=== PATIENT | female | born 1980 | race Asian ===

== ENCOUNTER 2024-10-04 16:08 | Emergency (ER) | payer OTHER, SELFPAY ==
--- NOTE | ~2024-10-04 | XR_ITS ---
EXAMINATION: LEFT ANKLE AND LEFT FOOT CLINICAL INFORMATION: Injury COMPARISON: None available. TECHNIQUE: 3 views left ankle, 3 views left foot FINDINGS: There is a tiny avulsion fracture arising from the distal calcaneus laterally with associated soft tissue swelling (see saved rod images). No other bone, joint or soft tissue abnormalities seen. XR/XR ankle LT min 3V IMPRESSION: Avulsion fracture distal lateral calcaneus. Electronically signed by: Donaldo Henson MD 10/04/2024 05:31 PM [facility]
--- NOTE | ~2024-10-04 | XR_ITS ---
EXAMINATION: LEFT ANKLE AND LEFT FOOT CLINICAL INFORMATION: Injury COMPARISON: None available. TECHNIQUE: 3 views left ankle, 3 views left foot FINDINGS: There is a tiny avulsion fracture arising from the distal calcaneus laterally with associated soft tissue swelling (see saved rod images). No other bone, joint or soft tissue abnormalities seen. XR/XR foot LT min 3V IMPRESSION: Avulsion fracture distal lateral calcaneus. Electronically signed by: Donaldo Henson MD 10/04/2024 05:31 PM [facility]
[2024-10-04 16:16] VITALS: BP 150/71; PULSE 86; RESP 20; TEMP 36.7; O2SAT 98
--- NOTE | 2024-10-04 16:17 | ED_ITS ---
HPI - General Adult General Chief complaint: Extremity Problem Stated complaint: L foot injury s/p fall Time Seen by Provider: 10/04/24 17:37 Source: patient Mode of arrival: wheelchair Limitations: no limitations History of Present Illness ED Provider: Mary Khalil PA-C HPI narrative: Patient is a 44 year old assigned female at with no reported medical history presenting to the emergency department today with left foot / ankle pain. Patient states that she tripped and fell down 2 stairs, rolling her left ankle / foot, and has had pain ever since. Patient denies any head strike or loss of consciousness. Patient denies any dizziness, lightheadedness, abdominal pain, nausea, vomiting, fever, chills, blurry vision, double vision, loss of vision, chest pain, difficulty breathing, shortness of breath, back pain, night sweats, pain with urination, increased urinary frequency, increased urinary urgency, blood in her urine or stool, syncope or a near syncopal episode, bowel incontinence, bladder incontinence, or any other complaints at this time. Location: left and lower extremity Relieving factors: immobilization Exacerbating factors: movement Associated symptoms: denies other symptoms Treatments prior to arrival: none Related Data Allergies Allergy/AdvReac Type Severity Reaction Status Date / Time No Known Allergies Allergy Verified 10/04/24 16:18 Review of Systems Constitutional: Constitutional: Reports no additional constitutional complaints, Denies chills, Denies fever(s) and Denies night sweats Eyes: Eyes: Reports no additional eye complaints, Denies blurry vision, Denies change in vision, Denies diplopia, Denies eye discharge, Denies loss of vision and Denies eye pain ENT: Denies dizziness Cardiovascular: Cardiovascular: Reports no additional cardiovascular complaints, Denies chest pain, Denies lightheadedness, Denies Loss of Consciousness and Denies dyspnea Respiratory: Respiratory: Reports no additional respiratory complaints and Denies dyspnea Gastrointestinal: Gastrointestinal: Reports no additional gastrointestinal complaints, Denies abdominal pain, Denies melena, Denies hematochezia, Denies change in bowel habits and Denies change in stool character Genitourinary: Genitourinary: Denies hematuria, Denies urinary frequency, Denies dysuria, Denies urinary incontinence, Denies urinary hesitancy and Denies urinary urgency Musculoskeletal: Musculoskeletal: Reports no additional musculoskeletal complaints, Denies numbness and Denies tingling Comments: left ankle and foot pain Neurologic: Denies dizziness, Denies loss of vision, Denies numbness and Denies tingling Psychiatric: Psychiatric: Reports no additional psychiatric complaints Endocrine: Endocrine: Reports no additional endocrine complaints Hematologic/Lymphatic: Hematologic/Lymphatic: Reports no additional hematologic/lymphatic complaints Allergic/Immunologic: Allergic/Immunologic: Reports no additional allergic/immunologic complaints PMFSH Past Medical History Attestation statement: The following information was validated with the patient. Source: old records reviewed and nursing notes reviewed Social History Social History Advance Directives: No Advance Directives Information Provided: Yes Physical Exam ED Vital Signs: Vital Signs - 24 hr 10/04/24 16:16 10/04/24 18:57 Temperature 98.1 F 98.1 F Pulse Rate 86 86 Respiratory Rate 20 20 Blood Pressure 150/71 H 150/71 H Pulse Oximetry 98 98 Oxygen Delivery Method Room Air Room Air BMI result Body Mass Index 30.0 Const General: cooperative, no acute distress, alert and awake Nutritional Appearance: well nourished Orientation/consciousness: patient oriented x3 Limitations: no limitations HENMT Head: Yes normal to inspection and Yes atraumatic Ears: hearing grossly normal bilaterally and external ears normal General nose exam: Normal external nose present, no nasal discharge noted and no epistaxis Face and sinus: Yes normal facial exam, No abrasion and No laceration Mouth: Normal oral and palatal mucosa present, no drooling and no muffled voice Eyes General: appearance normal, both eyes and all related structures Periorbital: periorbital findings normal Eyelids: Yes eyelids normal Conjunctivae: conjunctivae normal Pupils: Equal, round and reactive pupils present EOM: EOMs intact bilaterally Neck Neck: Yes normal visual inspection, Yes full ROM and Yes no lymphadenopathy Chest Chest palpation & inspection: normal inspection of the chest Resp Effort & Inspection: normal respiratory effort and able to speak in complete sentences GI Inspection: Yes normal to inspection Neuro General: patient oriented x3 and moves all extremities Cranial nerves: Yes Equal, round and reactive pupils present Cognition (Neuro): normal cognition Extrem Other: minimal swelling present to the medial and lateral left ankle as well as the plantar aspect of the left foot pain with palpation of the plantar left foot General: Yes full ROM and Yes capillary refill normal Psych Appearance: grossly normal Mental Status: mental status grossly normal Affect: normal affect Attitude: cooperative Thought process: Normal thought process present Thought content: Normal thought content present Insight: Good insight present (Psych) Course Course Course Narrative: RME performed by Mary Khalil PA-C. Patient is a 44 year old assigned female at presenting to the emergency department with left foot and ankle pain. Patient states she rolled her ankle going down 2 steps and has been having pain ever since. Patient denies any head strike or loss of consciousness. Detailed physical exam and review of systems are deferred to the case assistant. Imaging ordered. Patient placed back in the waiting room pending room availability and results. Procedures Orthopedic Splinting/Casting Injury #1: Side: left Lower Extremity Injury Location: ankle and foot Lower Extremity Immobilizer: boot orthosis Other Orthopedic Equipment: crutches Medical Decision Making Medical Decision Making MDM Narrative: Patient is a 44 year old assigned female at with no reported medical history presenting to the emergency department today with left ankle and foot pain. Patient's physical exam was as noted in the physical exam portion of this note. Patient's left foot and ankle x-ray showed a small distal calcaneous avulsion fracture. I confirmed with the orthopedic team that the patient could be placed in a walking boot, given non weight bearing instructions, as well as crutches + crutch instructions and follow up on an outpatient basis in the office. The orthopedic team confirmed this was appropriate. I explained my physical exam findings as well as all test results to the patient. I answered all questions asked by the patient. Patient's left lower extremity was placed in a walking boot, without incident. Patient's PMS was intact prior to and after boot placement. I stressed the importance of the patient taking her medication as directed (either prescribed or as the over the counter packaging recommends). I stressed the importance of the patient following up with her primary care provider and an orthopedic provider. I stressed the importance of the patient returning to the emergency department immediately if her symptoms were to worsen or if she were to develop any dizziness, shortness of breath, difficulty breathing, chest pain, blurry vision, loss of vision, nausea, vomiting, abdominal pain, fever, chills, back pain, or any other complaints. Patient verbalized agreement and understanding with this treatment plan and discharge. Differential Diagnosis Differential Diagnoses: The differential diagnosis associated with the presentation includes Calcaneous fracture Foot fracture Ankle fracture Ankle sprain / strain Foot sprain / strain Admission/Observation Consideration of admission/observation: Escalation of care including admission/observation considered Patient would have been admitted to the hospital had her work up had any f indings where hospital admission was appropriate and her clinical presentation warranted hospital admission. Consult Healthcare Provider Management of the patient was discussed with: Formula Maker (spoke to the orthopedic team as noted in the MDM Rationale portion of this note.) Independent Interpretation I performed an independent interpretation of an: Plain X-Ray Interpretation: My interpretation is in agreement with the radiologist's impression of these imaging studies. EXAMINATION: LEFT ANKLE AND LEFT FOOT CLINICAL INFORMATION: Injury COMPARISON: None available. TECHNIQUE: 3 views left ankle, 3 views left foot FINDINGS: There is a tiny avulsion fracture arising from the distal calcaneus laterally with associated soft tissue swelling (see saved rod images). No other bone, joint or soft tissue abnormalities seen. XR/XR foot LT min 3V IMPRESSION: Avulsion fracture distal lateral calcaneus. Electronically signed by: Donaldo Henson MD 10/04/2024 05:31 PM [facility] Dictated By: Donaldo Henson MD Signed By: Electronically signed by Donaldo Henson MD 10/04/24 4042 Radiology Impression Discussion of test interpretation with radiology: I have reviewed the radiologist's reading. Discharge Plan Discharge Clinical Impression: Avulsion fracture of calcaneus Qualifiers: Encounter type: initial encounter Fracture type: closed Fracture alignment: nondisplaced Laterality: left Patient Disposition: Home, Self-Care Instructions: Crutch Instructions (ED), Calcaneal Fracture (ED) Additional Instructions: Your left foot x-ray showed a distal calcaneal avulsion fracture. You must remain in the boot when ambulating and apply NO weight to the left foot, AT ALL. Every time you are stationary - your left foot must be elevated by at least 2 pillows. Follow up with your primary care provider and an orthopedic provider. Return to the emergency department immediately if your symptoms worsen or if you develop any dizziness, shortness of breath, difficulty breathing, chest pain, blurry vision, loss of vision, nausea, vomiting, abdominal pain, fever, chills, back pain, or any other complaints. Referrals: [facility] [Provider Group] (Call to establish and follow up with a primary care provider. If you already have a primary care provider, please follow up with them.) [facility] [Provider Group] (Call to establish and follow up with a primary care provider. If you already have a primary care provider, please follow up with them.) [facility] [Provider Group] (Call to establish and follow up with a primary care provider. If you already have a primary care provider, please follow up with them.) [facility] [Provider Group] (Call to establish and follow up with an orthopedic provider about your broken / fractured left calcaneus. ) Stand Alone Forms: Work/School Release Interventions: ED Discharge Assessment Last Done: 10/04/24 18:57 Discharge Date/Time: 10/04/24 18:57 Print Language: Divehi
[2024-10-04 18:57] VITALS: BP 150/71; PULSE 86; RESP 20; TEMP 36.7; O2SAT 98
== END 2024-10-04 18:57 | disposition home or self-care (01) ==
PROVIDERS: Emergency Provider Internal Medicine
DX: S92.002A Unspecified fracture of left calcaneus, initial encounter for closed fracture (principal); M25.572 Pain in left ankle and joints of left foot; W10.9XXA Fall (on) (from) unspecified stairs and steps, initial encounter; Y93.89 Activity, other specified; Y92.89 Other specified places as the place of occurrence of the external cause; Y99.8 Other external cause status
CPT/HCPCS: 29515; 73610; 73630; 99283; 99284

== ENCOUNTER 2024-10-30 13:15 | Outpatient (REF) | payer OTHER, SELFPAY ==
--- NOTE | ~2024-10-30 | XR_ITS ---
EXAMINATION: XR FOOT, LEFT CLINICAL INFORMATION: M79.672 - Pain in left foot COMPARISON: X-rays of the left foot 10/04/2024 TECHNIQUE: AP, lateral, and oblique views of the left foot. FINDINGS: The previously noted fracture of the lateral aspect of the distal calcaneus is less conspicuous The bones joints and soft tissues are otherwise normal. XR/XR foot LT min 3V IMPRESSION: Suspect healing fracture of the calcaneus. It is also possible that slight differences in projection may not as optimally visualized fracture.. Correlate clinically to confirm suspect partial healing Electronically signed by: Ermias Plata MD 10/30/2024 03:33 PM EST
== END 2024-10-30 13:16 | disposition home or self-care (01) ==
LOC: HO.HOSX 13:15
DX: M79.672 Pain in left foot (principal); S92.001D Unspecified fracture of right calcaneus, subsequent encounter for fracture with routine healing
CPT/HCPCS: 73630; 99202

== ENCOUNTER 2024-10-30 14:27 | Outpatient (AMB) | payer SELFPAY ==
--- NOTE | 2024-10-30 14:39 | MHC.OFFVIS ---
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 Patient states that she tripped and fell down 2 stairs, rolling her left ankle / foot, and has had pain ever since. She was seen in the ED and given a cam walker boot and was instructed No Weightbearing. Denies numbness or tingling in toes. States she has D/C use of boot and feels better. She only has very little pain and is now wearing regular shoe. 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 Patient states that on that date, she missed a step fell down 2 stairs into began to experience severe pain in her left foot. Today, the patient reports that her pain has improved significantly, and she only experiences minimal discomfort with ambulation. Patient reports that she has been wearing the boot most of the time, but has not been wholly faithful with wearing the boot whenever she is weight-bearing. No other acute complaints or concerns this time. [facility] Social History (Updated 10/30/24 @ 14:47 by DEJUAN Paez) Current occupational status: unemployed Current occupation: house / rt hand Physical Exam Vital Signs: BMI result Body Mass Index 30.0 Extrem Other: On inspection, there is no visible deformity of the patient's left foot Minimal edema, no erythema, no ecchymosis No lacerations, abrasions, open areas No evidence of infection Patient reports no tenderness to palpation about the left foot or ankle Patient is able to plantar flex and dorsiflex the left foot without difficulty Patient is able to flex and extend the digits of the left foot without difficulty Distal sensation intact Capillary refill brisk Office Procedures AMB Fracture Care Details: Left calcaneus avulsion fracture Fracture Billing Code: Fracture Billing Code Results Reviewed Results Reviewed: X-rays obtained in the office today and independently reviewed by me, Dar Santiago PA-C, demonstrate minimally displaced avulsion fracture of the distal calcaneus of the left foot with evidence of interval bony healing. Assessment & Plan Assessment & Plan (1) Avulsion fracture of calcaneus: Code(s): S92.009A - Unspecified fracture of unspecified calcaneus, initial encounter for closed fracture Category: Medical Qualifiers: Encounter type: initial encounter Fracture alignment: nondisplaced Fracture type: closed Laterality: left Plan 1. Avulsion fracture of the distal calcaneus of the left foot Date of injury 10/04/2024 Patient is educated about this condition Patient is educated about the typical recovery course At this time, patient is advised that for the next 2 weeks, she should continue to wear the boot, but can begin to gradually wean out of it so she is not wearing the boot anymore by the 6 week luz maria post injury Patient was offered a referral to physical therapy here, but states that on Saturday, she is returning to her home country of [place] for 3 months Patient was provided with a physical therapy order to use when in [place] Patient expresses understanding of these recommendations in his amenable to this plan Patient will follow-up as needed upon return from [facility] Orders: Orders XR foot LT min 3V Today M79.672 - Pain in left foot PT Evaluation and Treatment Today S92.009A - Unspecified fracture of unspecified calcaneus, initial encounter for closed fracture Coding Level of Care Code New Pt Level 3 (02193) Diagnoses Avulsion fracture of calcaneus S92.009A Encounter type: initial encounter Fracture alignment: nondisplaced Fracture type: closed Laterality: left CPT Codes Fracture Care - Fracture Billing Code: Fracture Billing Code ([id number])
== END 2024-10-30 14:57 | disposition home or self-care (01) ==
DX: S92.002A Unspecified fracture of left calcaneus, initial encounter for closed fracture (principal)
CPT/HCPCS: 99203